=== PATIENT | female | born 1970 | race Two or more races ===

== ENCOUNTER 2024-11-21 19:38 | Emergency (ER) | payer BC, SELFPAY ==
[2024-11-21 19:43] VITALS: BP 143/109
[2024-11-21 20:19] LABS: Hematocrit 37.1 % (37.0-47.0); Hemoglobin 12.7 g/dL (12.0-16.0); Mean Corp Hgb Conc. 34.2 g/dL (33.0-37.0); Mean Corpuscular Hgb 31.8 pg (27.0-31.0); Mean Platelet Volume 9.9 fL (7.4-10.4); Platelet Count 248 10^3/uL (130-400); Red Blood Cell Count 3.99 10^6/uL (4.20-5.40); Red Cell Dist. Width 12.8 % (11.5-14.5); White Blood Cell Count 9.2 10^3/uL (4.8-10.8)
[2024-11-21 20:38] LABS: ALT (SGPT) 91 U/L (0-35); AST (SGOT) 65 U/L (14-36); Albumin 4.2 g/dl (3.5-5.0); Alkaline Phosphatase 101 U/L (38-126); Blood Urea Nitrogen 12 mg/dl (7-17); Calcium 9.1 mg/dl (8.4-10.2); Carbon Dioxide 26 mmol/L (22-30); Chloride 101 mmol/L (98-107); Glucose 110 mg/dl (70-99); Potassium 3.9 mmol/L (3.5-5.1); Sodium 137 mmol/L (135-145); Total Bilirubin 0.3 mg/dl (0.2-1.3); Total Protein 7.3 g/dl (6.3-8.2); eGFR > 60.00
[2024-11-21 20:39] LABS: % Basophils 0.5 % (0-2); % Eosinophils 1.4 % (0-6); % Immature Granulocytes 0.1 % (0-0.5); % Monocytes 6.1 % (1.7-9.3); % Neutrophils 37.9 % (42.2-75.2); Absolute Basophils 0.1 10^3/uL (0-0.2); Absolute Eosinophils 0.1 10^3/uL (0-0.7); Absolute Monocytes 0.6 10^3/uL (0.1-0.6); Absolute Neutrophils 3.5 10^3/uL (1.4-6.5); Nucleated Red Blood Cells % 0 %
[2024-11-21 20:40] LABS: Troponin I 0.021 ng/ml
[2024-11-21 23:31] LABS: Troponin I 0.012 ng/ml
--- NOTE | 2024-11-21 23:35 | ED.GENMED ---
History of Present Illness
General
Chief Complaint: Heart Rate Problem
Source: patient
Exam Limitations: none
Time Seen by Provider: 11/21/24 22:55
History of Present Illness
History of Present Illness:
This is a 54 year old female that comes in with c/o SOB. State that on Saturday she started to choke and she was concerned that she may have aspirated water. State that on Saturday she bent over to put on her shoes and she was Dizzy, SOB and had
palpitations. States that they went out and when she got home she felt she couldn't get enough air. States that on she was SOB and was concerned for aspiration Pneumonia so she went to her PCP. Patient was started on augmenting. States that
when she moves she is SOB, has a cough that is not going away and has palpitations. States that she had some chest pressure yesterday and today with the SOB. Denies any fever, chills, abd pain, nausea, vomiting, diarrhea, headache, urinary burning.
Past History
Past History
ED Past Medical History: Asthma (Viral,), Cancer (Skin Cancer basal cell), HTN, Psychiatric (Depression) and Other (Neck pain, Elvira-Danlos syndrome, )
ED Past Surgical History: Gynecological (Hysterectomy) and Orthopedic (Left foot surgery, Right shoulder surgery, right and left hamstring surgery, Cervical fusion, Left shoulder surgery, Bilateral wrist reconstruction, )
Social History
Tobacco: Non-smoker
Alcohol: None
Personal:
Living: with family
Review of Systems
Review of Systems
All Other Systems: ROS reviewed and negative except as documented in HPI and ROS
Constitutional: Reports no symptoms; Denies fever or chills
EENT: Reports no symptoms
Respiratory: Reports cough and trouble breathing
Cardiac: Reports chest pain
ABD/GI: Reports no symptoms; Denies abdominal pain, nausea, vomiting or diarrhea
: Reports no symptoms; Denies dysuria, frequency or urgency
Musculoskeletal: Reports no symptoms
Skin: Reports no symptoms
Neurological: Reports dizzy; Denies headache
Psychiatric: Reports no symptoms
Phy Exam
General Physical Exam
General Presentation: mild distress
General age: appears stated age
General Skin: warm and dry
General Habitus: normal
General Mental: alert
General Hydration: appears well hydrated
ENT Exam
ENT Exam: TM's normal, pharynx normal and neck supple
Eye Exam
Eye Exam: EOMI
Cardiovascular Exam
Cardiovascular Exam: regular rate/rhythm, no edema, no murmur and normal peripheral pulses
Pulmonary Exam
Pulmonary Exam: lungs clear, no respiratory distress, no rales, chest non tender, no crackles, no rhonchi, no wheezing and other (Dry cough noted)
Gastrointestinal Exam
Gastrointestinal Exam: normal bowel sounds, non tender, soft, no organomegaly, no pulsatile mass and non distended
Musculoskeletal Exam
Musculoskeletal Exam: full ROM and no edema
Skin Exam
Skin Exam: normal color, warm/dry, no rash and no petechia
Psychiatric Exam
Psychiatric Exam: normal mood/affect
Course
Orders/Labs/Results
Orders:
Orders
11/21/24 19:41
EKG [Electrocardiogram (*1)] Urgent
Reason for Study: Palpitations
EKG- Treatment ONCE
11/21/24 19:48
CXR2 [CR Chest - 2 Views ] Stat
Comment:
Reason For Exam: chest pain
11/21/24 19:58
Complete Blood Count/With Diff Urgent
Comprehensive Metabolic Panel Urgent
Troponin I Urgent
11/21/24 22:47
Troponin I Urgent
11/21/24 23:35
D-Dimer Urgent
11/22/24 00:15
CT Chest Pe Study Urgent
Comment:
Reason For Exam: SOB, Cough, tachycardia with amblation
Abnormal Lab Results
11/21/24
19:58
RBC 3.99 L 10^6/uL
(4.20-5.40)
MCH 31.8 H pg
(27.0-31.0)
Absolute Lymphs (auto) 5.0 H 10^3/uL
(1.2-3.4)
Neutrophils % 37.9 L %
(42.2-75.2)
Lymphocytes % 54.0 H %
(20.5-51.1)
Glucose 110 H mg/dl
(70-99)
AST 65 H U/L
(14-36)
ALT 91 H U/L
(0-35)
11/21/24 19:58
11/21/24 19:58
Glucose nonfasting. AST/ALT mildly elevated. Troponin 0.021 D-Dimer 0.49
Vital Signs
Initial and Last Documented VS:
Initial Vital Signs
Temp Pulse Resp BP Pulse Ox
98 F 94 16 143/109 100
11/21/24 19:43 11/21/24 19:43 11/21/24 19:43 11/21/24 19:43 11/21/24 19:43
Last Documented Vital Signs
Temp Pulse Resp BP Pulse Ox
98 F 87 19 107/82 99
11/21/24 19:43 11/22/24 01:30 11/22/24 01:30 11/22/24 01:00 11/22/24 01:30
MDM/Problems Addressed
Differential Diagnosis Includes:
PE, Viral syndrome, PNA
MDM/Problems Addressed:
This is a 54 year old female that comes in with c/o SOB and cough. States that she thought she aspirated on Saturday,. States that she has been SOB with moving and has had palpitations and dizziness.
Will check labs. D-dimer and get chest x-rays.
Back into see patient. Explained that her D-dimer is in the normal range but high. Patient was very SOB and tachycardic with ambulation. Will get CT to help r/o PE or Pericardial effusion.
Back into see patient. Explained that the CT is negative for any PE or any other acute disease. Please follow up with the family doctor. Continue to increase your water intake to 8-8oz glasses daily. Return with any concerns.
Chronic conditions affecting care:
NA
Acute Exacerbation and/or Progression of Chronic Illness:
NA
*Radiology
Radiology exam reviewed: preliminary read by ED provider (Chest- negative for active disease. ), radiology read reviewed (CT chest night hawk-Normal cardiac chamber size. minimal aortic atherosclerosis without aneurysm. Right heart and pulmonary
arterial caliber normal with no pulmonary embollism. No pleural or pericardial effusion. No bulky adenopathy. central airwasy are patent. No bronchial wall thickening or ) and all reviewed NAD by ED Provider (CT cont- or pneumothorax. Minimal
dependent groundglass opacity and spetal thickening likely atelectasis or scarring. No findings to suggestive of Pneumonia. Upper abd: unremarkable. Lower anterior cervical spine fusion and screws within proximal left humeral head. )
*Pulse Oximetry
Patient hypoxic: no
*EKG
Interpreted by ED Provider?: Yes
Heart Rate: 91
Rate: normal
Rhythm: sinus
[place]: normal axis
Interval: normal interval
QRS Pattern: normal QRS
Ischemia: non-specific ST changes (II, III, aVF, V2, V3, V4, )
*Tobacco Sorter Interpretation
Rate: normal
Heart Rate: 89
Rhythm: sinus
*Critical Care Note
Total Time (30-74mins, 75-104mins- exclusive of procedures): Not Applicable
ED Attending Note
-
Portions of this chart may have been created with voice recognition software.� Occasional wrong word or��sound alike� substitutions may have occurred due to the inherent limitations of voice recognition software.
Discharge Plan
Departure
Patient Disposition: Home (Routine Discharge)
Date of Disposition: 11/22/24
Time of Disposition: 03:03
Patient with high blood pressure during this ER visit?: No
Condition: Good
Covid-19: Not Applicable
Discharge Problem:
Shortness of breath
Instructions: Shortness of breath in adults - ED discharge instructions
Prescriptions:
No Action
fexofenadine 60 mg Tablet
60 mg PO DAILY
losartan 25 mg Tablet
25 mg PO QPM
diazepam 5 mg Tablet
5 mg PO BID PRN (Reason: muscle relaxant)
bupropion HCl 450 mg Tablet Extended Release 24 Hr
450 mg PO DAILY
Cequa 0.09 % Dropperette
1 drp OPHTHALMIC (EYE) Q12H
Imvexxy Starter Pack 10 mcg Insert, Dose Pack
10 mcg VAGINAL QPM
Tylenol With Codeine
1 tab PO PRN PRN (Reason: pain)
famotidine [Pepcid] 20 mg Tablet
20 mg PO DAILY
Referrals:
Tiara Corona MD [Family Provider] - Follow up in 2-3 days
Activity Restrictions/Additional Instructions:
As discussed,your blood work shows that your liver enzymes are slightly elevated. This can happen with a viral illness. Your Chest x-ray was negative and your CT is negative for any PE on any other acute process. Please continue with your 8-8oz
glasses daily or water. Follow up with the family doctor for recheck. IF YOU HAVE INCREASED OR WORSENING SHORTNESS OF BREATH, CHEST PAIN, OR YOU HAVE ANY OTHER CONCERNS PLEASE RETURN TO THE EMERGENCY ROOM .
Interventions
Interventions:
*Risk Screen - Suicide Last Done: 11/21/24 19:43
*Neglect/Abuse Screening Last Done: 11/21/24 19:43
ED- Cardiac Assessment Last Done: 11/22/24 00:46
ED- Pulmonary Assessment Last Done: 11/22/24 00:46
Discharge Date and Time
Print Language: SURINAMESE
[2024-11-21 23:56] VITALS: BP 133/95
[2024-11-22] VITALS: BP 120/90
[2024-11-22] LABS: D-Dimer 0.49 ug/mlFEU (0.00-0.50)
[2024-11-22 01:00] VITALS: BP 107/82
[2024-11-22 03:05] VITALS: BP 108/81
== END 2024-11-22 03:08 | disposition home or self-care (01) ==
LOC: EMR 19:38
PROVIDERS: Clinical Nurse Specialist Family Health; Emergency Medicine; EMERGENCY PHYSICIAN Emergency Medicine; FAMILY PHYSICIAN Internal Medicine
DX: R06.02 Shortness of breath (principal); R05.9 Cough, unspecified; I10 Essential (primary) hypertension; J45.909 Unspecified asthma, uncomplicated; Z85.828 Personal history of other malignant neoplasm of skin
CPT/HCPCS: 99285; 71046; 71275; 80053; 84484; 85025; 85379; 93005; Q9967

== ENCOUNTER 2025-04-26 12:04 | Emergency (ER) | payer BC, SELFPAY ==
[2025-04-26 12:07] VITALS: BP 141/84
--- NOTE | 2025-04-26 13:13 | ED.GENMED ---
History of Present Illness
General
Chief Complaint: Musculo-Skeletal Complaint
Time Seen by Provider: 04/26/25 12:40
History of Present Illness
History of Present Illness:
TIME OF INITIAL ENCOUNTER: 1:15 PM
HPI: Patient presents with ongoing and worsening low back pain rating to the right leg. She was at [facility] and she is not improving despite being on steroids and actually feels a little bit worse. The pain radiates into the right leg.
She has rather severe pain in the right thigh when she attempts to walk.
EXAM:
GENERAL: Well appearing but in mild distress related to pain in the right side of the back
HEENT: Moist oral mucosa
NEUROLOGIC: Excellent strength all extremities, no obvious coordination deficits; excellent strength in an L5 and S1 distribution, antalgic gait noted
PSYCHIATRIC: Appropriate mental status, normal insight and judgement
EXTREMITIES: Nontender, no edema, moves all extremities equally
SKIN: No rash, no lesions
BACK: There is no significant midline tenderness, there is decreased active range of motion of the thoracolumbar spine due to pain. Negative straight leg raise on the right. Normal anal tone (Kayleen DON as clerk guide in room)
NUMBER AND COMPLEXITY OF PROBLEMS ADDRESSED AT THE ENCOUNTER
� Chronic conditions affecting care: History of basal cell carcinoma, high blood pressure
� Acute Exacerbation and/or Progression of Chronic Illness: This is an acute problem
� Differential Diagnosis includes: Spinal stenosis, degenerative disc disease, sciatica, no evidence for cauda equina syndrome based on exam
AMOUNT AND/OR COMPLEXITY OF DATA TO BE REVIEWED AND ANALYZED
� I performed an independent evaluation of and my interpretation is:
EKG:
CT:
X-rays:
Laboratory Studies:
Other:
� Review of other/old records: The patient was seen by Dr. Arce in the past related to displaced right proximal humerus fracture managed operatively
� Clinical information was obtained by an independent historian: Spoke to has not a bedside
� Prescriptions/Medications Considered but not given:
� Further testing considered but not performed: Considered imaging however the patient states she already had x-rays performed at orthopedics
RISK OF COMPLICATIONS AND/OR MORBIDITY OR MORTALITY OF PATIENT MANAGEMENT
� Social determinants of health affecting care: Lives at home, will be attending her son's law school graduation in 2 days
� Discussion with other providers:
� Escalation of care including admission/observation vs risk of discharge considered: The patient has already tried steroids without improvement. Valium has been tried without improvement. Will start Percocet and give a dose of
Toradol. She states she has an appoint to see physical therapy [facility]. She has an appoint to see Niya again on Saturday.
ANY OTHER UPDATES:
2:45 PM: On reassessment, the patient states she is now able to find a comfortable position. She wants to hold off on any further steroids as this is not helping her anyway. Will have her start NSAIDs. Will give narcotic analgesia for the next
several days.
Past History
Past History
ED Past Medical History: Asthma (Viral,), Cancer (Skin Cancer basal cell), HTN, Psychiatric (Depression) and Other (Neck pain, Elvira-Danlos syndrome, )
ED Past Surgical History: Gynecological (Hysterectomy) and Orthopedic (Left foot surgery, Right shoulder surgery, right and left hamstring surgery, Cervical fusion, Left shoulder surgery, Bilateral wrist reconstruction, )
Social History
Tobacco: Non-smoker
Alcohol: None
Personal:
Living: with family
Phy Exam
Physical Exam
Physical Exam:
See HPI
Course
Orders/Labs/Results
Orders:
Orders
04/26/25 13:36
Ketorolac [Toradol] 30 mg IM NOW STA
Oxycodone/Acetaminophen [Percocet 5/325] 2 tablet PO NOW STA
Vital Signs
Initial and Last Documented VS:
Initial Vital Signs
Temp Pulse Resp BP Pulse Ox
36.6 C 105 19 141/84 98
04/26/25 12:07 04/26/25 12:07 04/26/25 12:07 04/26/25 12:07 04/26/25 12:07
Last Documented Vital Signs
Temp Pulse Resp BP Pulse Ox
36.6 C 105 19 141/84 98
04/26/25 12:07 04/26/25 12:07 04/26/25 12:07 04/26/25 12:07 04/26/25 12:07
*Critical Care Note
Total Time (30-74mins, 75-104mins- exclusive of procedures): Not Applicable
ED Attending Note
-
Portions of this chart may have been created with voice recognition software.� Occasional wrong word or��sound alike� substitutions may have occurred due to the inherent limitations of voice recognition software.
Discharge Plan
Departure
Prescriptions:
No Action
fexofenadine 60 mg Tablet
60 mg PO DAILY
losartan 25 mg Tablet
25 mg PO QPM
diazepam 5 mg Tablet
5 mg PO BID PRN (Reason: muscle relaxant)
bupropion HCl 450 mg Tablet Extended Release 24 Hr
450 mg PO DAILY
Cequa 0.09 % Dropperette
1 drp OPHTHALMIC (EYE) Q12H
Imvexxy Starter Pack 10 mcg Insert, Dose Pack
10 mcg VAGINAL QPM
Tylenol With Codeine
1 tab PO PRN PRN (Reason: pain)
famotidine [Pepcid] 20 mg Tablet
20 mg PO DAILY
Referrals:
Tiara Corona MD [Family Provider, Internal Medicine]
Interventions
Interventions:
*Risk Screen - Suicide Last Done: 04/26/25 12:07
*Neglect/Abuse Screening Last Done: 04/26/25 12:07
Discharge Date and Time
Print Language: HONG KONG[place]
[2025-04-26] MEDS: TORADOL 30 MG IM (13:43)
[2025-04-26] MEDS: PERCOCET 5/325 2 TABLET PO (13:43)
== END 2025-04-26 15:05 | disposition home or self-care (01) ==
LOC: EMR 12:04
PROVIDERS: EMERGENCY PHYSICIAN Emergency Medicine; FAMILY PHYSICIAN Internal Medicine
DX: M54.50 Low back pain, unspecified (principal); M79.651 Pain in right thigh; J45.909 Unspecified asthma, uncomplicated; I10 Essential (primary) hypertension; F32.A Depression, unspecified; Z85.828 Personal history of other malignant neoplasm of skin; Z90.710 Acquired absence of both cervix and uterus; Q79.60 Ehlers-Danlos syndrome, unspecified
CPT/HCPCS: 99282; 96372